=== PATIENT | female | born 2000 ===

== ENCOUNTER 2024-08-30 10:54 | Outpatient (CLI) | payer OTHER, SELFPAY ==
--- NOTE | ~2024-08-30 | US_ITS ---
EXAMINATION: US pelvic complete DATE: 08/30/2024 11:14 INDICATION: Excessive and frequent menstruation with irregular cycle. TECHNIQUE: Multiple transabdominal sonographic images of the pelvis were obtained. COMPARISON: None. FINDINGS: The uterus measures 7.8 x 3.8 x 5.8 cm. There is no free fluid in the pelvis. The endometrial complex measures 5 mm in thickness. The right ovary measures 5.0 x 4.1 x 3.3 cm. The left ovary measures 2.7 x 2.8 x 2.3 cm. There is normal vascular flow in the ovaries. IMPRESSION: 1. Normal pelvis. Reviewed, dictated and finalized at location A. IMPRESSION: 1. Normal pelvis.
== END 2024-08-30 10:55 | disposition home or self-care (01) ==
LOC: MICIMG 10:55
PROVIDERS: PCP Nurse Practitioner Women's Health; Visit Provider Nurse Practitioner Women's Health
DX: N92.0 Excessive and frequent menstruation with regular cycle (principal); N94.6 Dysmenorrhea, unspecified; L68.0 Hirsutism
CPT/HCPCS: 76856